=== PATIENT | male | born 1985 ===

== ENCOUNTER 2017-01-05 17:37 | Observation (INO) | payer OTHER ==
[2017-01-05 17:50] VITALS: BP 152/105; PULSE 98; RESP 16; TEMP 98.7; O2SAT 97
[2017-01-05] MEDS ORDERED: Iohexol 240 (50 ml) PO STA (19:17)
[2017-01-05] MEDS ORDERED: Iohexol 240 (50 ml) ONE (19:25)
--- NOTE | 2017-01-05 19:34 | ED PDOC ---
HPI: Abdomen Time Seen by Provider: 01/05/17 18:48 Chief Complaint (Nursing): Abdominal Pain Chief Complaint (Provider): Abdominal Pain History Per: Patient History/Exam Limitations: no limitations Onset/Duration Of Symptoms: Days (1 day) Outside of [place] travel?: No Current Symptoms Are (Timing): Still Present Context: Other (umbilical hernia) Severity: Moderate Location Of Pain/Discomfort: Periumbilical Associated Symptoms: denies: Fever, Nausea, Vomiting, Diarrhea, Constipation Additional Complaint(s): Raymond Yanez is a 31 year old male, with no pertinent past medical history , who presents to the emergency department for the evaluation of periumbilical abdominal pain, that the patient has been experiencing for 1 day. Patient reports a bump to his umbilicus that developed last year; however, the pain began today, prompting his visit to the emergency room. Denies a fever, nausea, vomiting, diarrhea, or constipation. PMD: none specified Past Medical History Reviewed: Historical Data, Nursing Documentation, Vital Signs Vital Signs: Last Vital Signs Temp 98.7 F 01/05/17 17:48 Pulse 98 H 01/05/17 17:48 Resp 16 01/05/17 17:48 BP 152/105 H 01/05/17 17:48 Pulse Ox 97 01/05/17 23:16 - Medical History PMH: No Chronic Diseases - Surgical History Surgical History: No Surg Hx - Family History Family History: States: No Known Family Hx - Social History Current smoker - smoking cessation education provided: No Ex-Smoker (has not smoked in the last 12 months): No Alcohol: Social Drugs: Denies - Home Medications Home Medications: Ambulatory Orders Medication Instructions Recorded Naproxen [Naprosyn] 500 mg PO BID PRN #15 tablet 01/05/17 - Allergies Allergies/Adverse Reactions: Allergies Allergy/AdvReac Type Severity Reaction Status Date / Time No Known Allergies Allergy Verified 01/05/17 17:48 Review of Systems ROS Statement: Except As Marked, All Systems Reviewed And Found Negative Constitutional: Negative for: Fever Gastrointestinal: Positive for: Abdominal Pain. Negative for: Nausea, Vomiting , Diarrhea, Constipation Physical Exam - Reviewed Nursing Documentation Reviewed: Yes Vital Signs Reviewed: Yes - Physical Exam Appears: Positive for: Well, Non-toxic, No Acute Distress Head Exam: Positive for: ATRAUMATIC, NORMOCEPHALIC Skin: Positive for: Normal Color, Warm, Dry Cardiovascular/Chest: Positive for: Regular Rate, Rhythm. Negative for: Murmur Respiratory: Positive for: Normal Breath Sounds. Negative for: Respiratory Distress Gastrointestinal/Abdominal: Positive for: Normal Exam, Soft, Tenderness ( supraumblicial tenderness to palpation), Other (reducible supraumbilical mass). Negative for: Guarding, Rebound Back: Positive for: Normal Inspection. Negative for: L CVA Tenderness, R CVA Tenderness Neurologic/Psych: Positive for: Alert, Oriented - Laboratory Results Result Diagrams: 01/05/17 19:25 01/05/17 17:30 - ECG O2 Sat by Pulse Oximetry: 97 (RA) Pulse Ox Interpretation: Normal - CT Scan/US CT abd/pelvis Other Rad Studies (CT/US): Radiology Report Reviewed (Supraumbilical fat and omental containing hernia extending slightly to the right of midline. ) Medical Decision Making Medical Decision Makin:48 Initial Impression: Umbilical hernia r/o obstruction Initial Plan: * CT Abd & Pelvis w/ PO & IV Contrast * CBC * CMP * PT/PTT * Iohexol 50 ml PO * ED Observation 19:18 Patient will be placed within ED Observation secondary to time-extensive ED workup. Pending CT scan. See Observation note for further updates. Scribe Attestation: Documented by Renard Rowan, acting as a scribe for Vanessa Ware MD. Provider Scribe Attestation: All medical record entries made by the Scribe were at my direction and personally dictated by me. I have reviewed the chart and agree that the record accurately reflects my personal performance of the history, physical exam, medical decision making, and the department course for this patient. I have also personally directed, reviewed, and agree with the discharge instructions and disposition. ED OBSERVATION Discharge: Yes Date of observation admission: 01/05/17 Time of observation admission: 19:18 - Observation admission statement Patient is being placed in observation because:: Patient will be placed within ED Observation secondary to time-extensive ED workup. - Goals of Observation Goals of observation are:: Pending CT scan. Disposition - Clinical Impression Clinical Impression: Umbilical hernia - Disposition Disposition: Routine/Home Disposition Time: 23:16 Condition: STABLE
[2017-01-05 19:35] LABS: BASO # 0.1 K/uL (0.0-0.2); BASO % 0.8 % (0.0-2.0); EOS # 0.1 K/uL (0.0-0.7); EOS % 1.6 % (0.0-4.0); LYMPH % 26.9 % (20.0-40.0); MEAN CELL VOLUME 85.7 fl (80.0-94.0); MEAN CORPUSCULAR HEMOGLOBIN 28.7 pg (27.0-31.0); MEAN CORPUSCULAR HGB CONC 33.5 g/dL (33.0-37.0); MEAN PLATELET VOLUME 7.8 fl (7.2-11.7); MONO # 0.5 K/uL (0.0-0.8); MONO % 6.8 % (0.0-10.0); NEUT # 4.8 K/uL (1.8-7.0); NEUT % 63.9 % (50.0-75.0); NRBC % 0.1 % (0.0-0.0); RED CELL DISTRIBUTION WIDTH 13.2 % (11.5-14.5); WHITE BLOOD COUNT 7.5 K/uL (4.8-10.8)
[2017-01-05 19:51] LABS: ALB/GLOB RATIO 1.4 (1.0-2.1); ALKALINE PHOSPHATASE 83 U/L (38-126); ALT/SGPT 66 U/L (21-72); AST/SGOT 39 U/L (17-59); BILIRUBIN,TOTAL 0.3 mg/dl (0.2-1.3); BLOOD UREA NITROGEN 17 mg/dl (9-20); CALCIUM 9.4 mg/dL (8.4-10.2); CARBON DIOXIDE 25 mmol/L (22-30); CHLORIDE 105 mmol/L (98-107); GFR AFRICAN-AMERICAN > 60; GLUCOSE,RANDOM 92 mg/dL (75-110); POTASSIUM 3.8 MMOL/L (3.6-5.0); SODIUM 144 mmol/l (132-148); TOTAL PROTEIN 8.2 G/DL (6.3-8.2)
[2017-01-05 19:52] LABS: PARTIAL THROMBOPLASTIN TIME 27.4 SECONDS (23.3-32.5)
[2017-01-05] MEDS ORDERED: Iohexol 300 100 ML IJ ONE (22:21)
[2017-01-05] MEDS ORDERED: Sodium Chloride 0.9% 50 ML IV ONE (22:21)
--- NOTE | 2017-01-05 22:56 | CT ---
EXAM: CT Abdomen and Pelvis With Intravenous Contrast CLINICAL HISTORY: 31 years old, male; Pain; Abdominal pain; Periumbilical; Additional info: Umbilical hernia pain. Sent phy. Doc. With request TECHNIQUE: Axial computed tomography images of the abdomen and pelvis with intravenous contrast. This CT exam was performed using one or more of the following dose reduction techniques: automated exposure control, adjustment of the mA and/or kV according to patient size, and/or use of iterative reconstruction technique. Coronal and sagittal reformatted images were created and reviewed. CONTRAST: 95 mL of [id number] administered intravenously. COMPARISON: No relevant prior studies available. FINDINGS: Lower thorax: The bilateral lung bases are clear. ABDOMEN: Liver: No acute findings. Gallbladder and bile ducts: The gallbladder is decompressed. No calcified stones. No significant intra- or extrahepatic biliary ductal dilation. Pancreas: Enhances homogeneously. No ductal dilation. No discrete mass. Spleen: No acute findings. Adrenals: No acute findings. Kidneys and ureters: No acute findings. No hydronephrosis or renal calculi. No discrete solid mass. PELVIS: Bladder: No acute findings. Reproductive: No acute findings. Appendix: The appendix is of normal caliber (series 3, image 119) . ABDOMEN and PELVIS: Stomach and bowel: A supraumbilical fat and omental containing hernia is identified, extending slightly to the right of midline. No bowel is contained within the hernia sac. No obstruction. No mucosal thickening. Peritoneum: No significant fluid collection. No free air. Lymph nodes: No pathologically enlarged lymph nodes. Vasculature: Unremarkable. Bones: No acute fracture. IMPRESSION: Supraumbilical fat and omental containing hernia extending slightly to the right of midline.
== END 2017-01-05 23:14 | disposition home or self-care (01) ==
LOC: H.ER 17:37 → H.EROBSV 19:18
PROVIDERS: ADMIT Emergency Medicine; ATTEND Emergency Medicine
DX: K42.9 Umbilical hernia without obstruction or gangrene (principal)

== ENCOUNTER 2017-03-20 10:54 | Day surgery (SDC) | payer SELFPAY ==
[2017-03-17 15:07] VITALS: BMI 44.1
[2017-03-20] MEDS ORDERED: Lactated Ringer's 1,000 ML IV ONE (11:30)
[2017-03-20] MEDS ORDERED: Propofol 10 mg/ml Inj (20 ML) ONE ×2 (13:08→13:42)
[2017-03-20] MEDS ORDERED: Succinylcholine 200 mg/10 ml Inj IV ONE (13:13)
[2017-03-20] MEDS ORDERED: Rocuronium 10 mg/ml (5 ml) ONE (13:15)
[2017-03-20] MEDS ORDERED: Midazolam 2 MG/2 ML VIAL ONE (13:15)
--- NOTE | 2017-03-20 13:43 | CP.SDSHP ---
Same Day Surgery H & P - History Proposed Procedure: Umbilical hernia repair Pre-Op Diagnosis: unbilical hernia - Allergies Allergies: Allergies No Known Allergies Allergy (Verified 03/20/17 11:08) - Physical Exam General Appearance: NAD Vital Signs: Vital Signs 03/20/17 11:25 Temperature 98.4 F Pulse Rate 72 Respiratory 18 Rate Blood Pressure 139/77 O2 Sat by Pulse 98 Oximetry Mental Status: Alert & Oriented x3 Neuro: WNL Heart: WNL Lungs: WNL GI: WNL - {Optional Preform as Required} Abdomen: WNL Integument: WNL NEWSPAPER REPORTER: WNL - Impression Impression: Umbilical hernia Pt. Evaluated Today:Candidate for Anesthesia & Procedure: Yes - Date & Time Date: 03/20/17 Time: 13:43 Short Stay Discharge - Short Stay Discharge Admitting Diagnosis/Reason for Visit: K40.3 Disposition: HOME/ ROUTINE Referrals: FAMILY PROVIDER,NO [Primary Care Provider] - Follow-up: -f/u with Dr. Rubin in 1-2 weeks -no heavy lifting for 1 month. -Ok to take shower on Thursday. Take dressing off. keep steristrips on . -Take pain med as needed. Instructions: Umbilical Hernia (DC)
[2017-03-20] MEDS ORDERED: Dexamethasone 4 mg/1 ml ONE (14:06)
[2017-03-20] MEDS ORDERED: Neostigmine Methylsulfate 2 MG/2 ML ML IV ONE (14:31)
[2017-03-20] MEDS ORDERED: Lactated Ringer's 1,000 ML IV SCH (15:03)
[2017-03-20] MEDS: HYDROmorphone 0.5 mg/0.5 ml ISec IVP PRN ×4 (15:05→15:45)
--- NOTE | 2017-03-20 15:07 | PCM.SURG1 ---
Surgeon's Initial Post Op Note - Surgeon's Notes Surgeon: Dr. Rubin Machine Setter: Dr. Irizarry PGY-3, Dr. Pendleton PGY-2 Type of Anesthesia: General Endo Pre-Operative Diagnosis: Periumbilical hernia Operative Findings: Periumbilical hernia Post-Operative Diagnosis: Periumbilical hernia Operation Performed: Periumbilical hernia repair with mesh Specimen/Specimens Removed: none Estimated Blood Loss: EBL {In ML}: 10 Blood Products Given: N/A Drains Used: No Drains Post-Op Condition: Good Date of Surgery/Procedure: 03/20/17 Time of Surgery/Procedure: 07:00
[2017-03-20] MEDS ORDERED: Oxycodone/Acetaminophen 5/325 mg Tab PO PRN (15:11)
[2017-03-20] MEDS ORDERED: Oxycodone/Acetaminophen 5/325 mg Tab PO ONE (18:45)
[2017-03-20 19:33] VITALS: BP 120/70; PULSE 78; RESP 18; TEMP 98.1; O2SAT 97
--- NOTE | 2017-03-20 23:54 | OP ---
PROCEDURE DATE: 03/20/2017 PREOPERATIVE DIAGNOSIS: Periumbilical hernia. POSTOPERATIVE DIAGNOSIS: Periumbilical hernia. PROCEDURE: Umbilical hernia repair with mesh. SURGEON: Dr. Rubin. CLINICAL APPEALS AUDITOR: Dr. Irizarry and Dr. Pendleton. ANESTHESIA: General. ANESTHESIA ADMINISTERED BY: Dr. Mondragon. DESCRIPTION OF PROCEDURE: With the patient in the supine position, under adequate general anesthesia, the abdomen was prepped and draped in the usual sterile manner. The patient had a small mass palpable in the subcutaneous tissue just above and extending into the upper portion of the umbilicus and examination of the CT scan had revealed that this represented slightly supraumbilical fascial hernia. A longitudinal incision was made from just above the area of the mesh down to the lower edge of the umbilicus. The incision was taken down through the full thickness of the skin and a fatty mass was noted presenting in the subcutaneous tissue. The subcutaneous tissue was from the mesh circumferentially and fascial defect measuring just under 2 cm was palpated. The protruding fatty material which appeared to be preperitoneal was serially reduced into the peritoneal cavity and a circumferential plane developed between the backside of the fascia and the surrounding peritoneum. In addition, any attachments of the herniated material to the superficial surface of the fascia were divided using the cautery. A size medium 3.4 cm hernia patch was positioned within the defect and expanded to fully cover the defect on the posterior aspect. The outer layer of the mesh was then sutured to the fascia circumferentially using interrupted sutures of 2-0 Prolene and the positioning tales were trimmed outside the fascia to lay flat within the fascial layer. The subcutaneous tissue was then re-approximated over the repair using a few interrupted sutures of 3-0 Vicryl and subcuticular closure was performed with running suture of 4-0 Monocryl and Steri-Strips. Dry sterile dressing was applied. The patient tolerated the procedure well and transferred to the recovery room in stable condition. Estimated blood loss for the was procedure was 10 mL. Daljit Rubin MD
== END 2017-03-20 19:40 | disposition home or self-care (01) ==
LOC: H.OPSURG 10:54
PROVIDERS: ATTEND Specialist
DX: K40.30 Unilateral inguinal hernia, with obstruction, without gangrene, not specified as recurrent (principal)